=== PATIENT | female | born 1985 | race Caucasian/White ===

== ENCOUNTER 2022-06-03 16:05 | Emergency (ER) | payer OTHER, SELFPAY ==
[2022-06-03 16:10] VITALS: BP 118/75; PULSE 72; RESP 18; TEMP 36.4; BMI 22.3
--- NOTE | 2022-06-03 16:29 | CRLHL7_ITS ---
For Patients: As a result of the Century Cures Act, medical imaging exams and procedure reports are released immediately into your electronic medical record. You may view this report before your referring provider. If you have questions, please contact your health care provider. INDICATION: Abdominal pain. TECHNIQUE: CT abdomen and pelvis acquired with 64 mL Isovue 370 contrast. COMPARISON: None available. FINDINGS: Lower chest: 0.3 cm subpleural pulmonary nodule in the right middle lobe (series 3, image 9). 0.4 cm perifissural nodule in the right lower lobe (series 3, image 16). Liver: Too small to characterize hypodense hepatic lesions, likely benign in the absence of a known malignancy. Gallbladder and bile ducts: Unremarkable. Pancreas: Unremarkable. Spleen: Unremarkable. Adrenal glands: Unremarkable. Kidneys: Kidneys enhance symmetrically, without hydronephrosis. Retroperitoneum: No lymphadenopathy. Bowel and mesentery: Bowel is nonobstructed. The appendix is not definitively identified, however there are no right lower quadrant inflammatory changes identified. No significant ascites. No definite pneumoperitoneum. Bladder: Unremarkable for degree of distension. Reproductive organs: Intrauterine contraceptive device is noted. Corpus luteum cyst is present within the left ovary. Trace pelvic free fluid, likely physiologic. Pelvic lymph nodes: No lymphadenopathy. Vessels: Unremarkable. Abdominal wall: No acute abdominal wall abnormality. Bones: No suspicious/aggressive focal osseous lesion. IMPRESSION: 1. No acute intra-abdominal abnormality identified to explain patient`s symptoms. The appendix is not definitely identified. 2. Incidentally noted pulmonary nodules in the right lung base measuring up to 0.4 cm. Consider optional follow up CT chest in 12 months, per Fleischner guidelines. Please note that all CT scans at this facility use dose modulation, iterative reconstruction, and/or weight-based dosing when appropriate to reduce radiation dose to as low as reasonably achievable. Dictated by Tan Plata MD @ 06/03/2022 6:56:10 PM (Electronically Signed)
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
[2022-06-03 16:43] LABS: Basophils Absolute Auto 0.02 K/uL (0.00-0.30); Basophils Percent Auto 0.3 % (0.0-3.0); Eosinophils Absolute Auto 0.02 K/uL (0.00-0.50); Eosinophils Percent Auto 0.3 % (0.0-7.0); Hematocrit 39.1 % (33.0-51.0); Hemoglobin* 13.5 gm/dL (12.0-16.0); Immature Granulocytes Abs Auto 0.01 K/uL (0.00-0.30); Lymphocytes Absolute Auto 1.57 K/uL (0.90-2.90); Lymphocytes Percent Auto 24.3 % (20-44); Mean Corpuscular HGB Conc 35 gm/dL (32-36); Mean Corpuscular Hemoglobin 30 pg (26-34); Mean Corpuscular Volume 88 fL (80-100); Monocytes Percent Auto 6.5 % (0.0-11.0); Neutrophils Absolute Auto 4.41 K/uL (1.7-7.0); Neutrophils Percent Auto 68.4 % (42.0-72.0); Platelet Count* 175 K/uL (140-440); RDW Coefficient of Variation % 12.2 % (11.5-15.5); Red Blood Count 4.47 m/uL (4.00-5.20); White Blood Count* 6.45 K/uL (4.50-11.00)
[2022-06-03 16:47] LABS: Slide Review Reflex No
[2022-06-03 17:01] LABS: Albumin* 4.3 g/dL (3.3-5.0); Chloride* 102 mmol/L (96-114)
[2022-06-03 17:02] LABS: Potassium* 3.3 mmol/L (3.6-5.1); Sodium* 138 mmol/L (135-149)
[2022-06-03 17:04] LABS: Alkaline Phosphatase* 59 U/L (40-150); Aspartate Amino Transferase* 24 U/L (12-35); Bilirubin Direct* 0.3 mg/dL (0.0-0.5); Bilirubin Total* 1.6 mg/dL (0.1-1.5); Blood Urea Nitrogen* 19 mg/dL (5-24); Carbon Dioxide* 26 mmol/L (20-32); Creatinine* 0.9 mg/dL (0.5-1.5); Estimated Glomerular Filt Rate 84 ml/min; Glucose* 134 mg/dL (60-115); Lipase* 111 U/L (23-300)
[2022-06-03 17:05] LABS: Alanine Aminotransferase* 21 U/L (4-35); Calcium* 8.9 mg/dL (8.4-10.6)
[2022-06-03 18:33] LABS: Appearance Urine Clear (Clear); Bilirubin Urine Negative (Negative); Blood Urine Negative (Negative); Color Urine Yellow (Yellow); Glucose Urine Negative (Negative); Ketones Urine Negative (Negative); Leukocyte Esterase Urine Negative (Negative); Nitrite Urine Negative (Negative); Protein Urine Negative (Negative); Urobilinogen Urine 0.2 (0.2-1.0); pH Urine 6.5 (5.0-8.5)
[2022-06-03 18:37] LABS: HCG Qualitative* Negative (Negative)
[2022-06-03 18:41] LABS: RBC Urine 0-2 (0-2); WBC Urine 0-2 (0-5)
[2022-06-03 19:47] VITALS: BP 122/76; PULSE 62; RESP 16; O2SAT 98
== END 2022-06-03 19:48 | disposition home or self-care (01) ==
PROVIDERS: Emergency Provider Emergency Medicine
DX: S30.1XXA Contusion of abdominal wall, initial encounter (principal); Y93.55 Activity, bike riding; Y92.414 Local residential or business street as the place of occurrence of the external cause; Y99.8 Other external cause status
CPT/HCPCS: 36415; 74177; 80048; 80076; 81001; 83690; 84703; 85025; 99284; Q9967